=== PATIENT | female | born 1960 | race Caucasian/White ===

== ENCOUNTER 2019-11-09 02:25 | Emergency (ER) | payer OTHER, SELFPAY ==
--- NOTE | ~2019-11-09 | CT_ITS ---
EXAMINATION: CT brain wo con DATE: 11/09/2019 03:11 INDICATION: Stroke. Fall. Visual field defect for 3-4 days. TECHNIQUE: Computed tomography (CT) of the head was performed without intravenous contrast. The mA wa s adjusted according to patient size. Iterative reconstruction technique was employed. The dose-lengt h product was 605.33 mGy-cm. COMPARISON: Head CT 02/28/2019 FINDINGS: There is an old infarct in the right basal ganglia. Low-attenuation in the right cerebral p eduncle and jesus may be chronic Wallerian degeneration. There is a low-attenuation infarct in the lef t occipital lobe. There are scattered areas of low attenuation in the cerebral white matter. There is no intracranial hemorrhage, acute infarction, or abnormal intracranial mass lesion. The ventricles a re normal in size. Cavum septum pellucidum is noted. The paranasal sinuses are clear. The orbits are normal. There is a trace left mastoid effusion, which is chronic. IMPRESSION: 1. Left occipital lobe infarct, new from 02/28/2019, likely acute or subacute. 2. Old infarct in the right basal ganglia with likely chronic Wallerian degeneration involving the ri ght cerebral peduncle and jesus. 3. Stable mild nonspecific cerebral white matter disease, which likely represents chronic small vesse l ischemic disease. Reviewed, dictated and finalized at location A. IMPRESSION: 1. Left occipital lobe infarct, new from 02/28/2019, likely acute or subacute. 2. Old infarct in the right basal ganglia with likely chronic Wallerian degener ation involving the right cerebral peduncle and jesus. 3. Stable mild nonspecific cerebral white matter disease, which likely represen ts chronic small vessel ischemic disease.
--- NOTE | ~2019-11-09 | CT_ITS ---
EXAMINATION: CT abd pelvis lumbar wo con DATE: 11/09/2019 03:11 INDICATION: Right flank pain and low back pain. Fall. TECHNIQUE: Computed tomography (CT) of the abdomen and pelvis and lumbar spine was performed without intravenous contrast. Automated exposure control and iterative reconstruction technique were employed . The dose-length product was 1426.92 mGy-cm. COMPARISON: None FINDINGS: CT ABDOMEN AND PELVIS: The visualized portions of the lung bases are clear without pneumonia or pleur al effusion. The heart size is normal. There are coronary artery calcifications. No pericardial effus ion. There is a small sliding hiatal hernia. A calcification in the liver is consistent with old gran ulomatous disease. There are changes of cholecystectomy. The spleen, pancreas, and right adrenal glan d are normal. There is a 1.4 cm mass in left adrenal gland measuring low-attenuation, consistent with an adenoma. There is cortical thinning of the kidneys. There is no urolithiasis. There is a small ca lcified fibroids in the uterus. There are no dilated loops of bowel. The appendix is normal. There ar e no pathologically enlarged lymph nodes. There is no free intraperitoneal fluid. There is calcified atherosclerosis of the aorta and many of the other arteries. The bladder is not well distended. There is a subcutaneous hematoma in the right flank. CT LUMBAR SPINE: There is 3 mm anterolisthesis of L2 on L3. There is 12 degrees levoscoliosis of lumb ar spine. No acute fracture. There is severely decreased disc height at T11-T12, moderately decreased disc height at T12-L1, mildly decreased disc height at L1-L2, moderately decreased disc height at L2 -L3, and severely decreased disc height from L3-L4 through L5-S1. The following disc levels are speci fically discussed: L1-L2: The disc is bulging. There is moderate right and mild left facet joint osteoarthritis. There i s mild right neural foraminal stenosis. There is mild central canal stenosis. L2-L3: The disc is bulging. There is severe bilateral facet joint osteoarthritis. There is mild bilat eral neural foraminal stenosis. There is mild central canal stenosis. L3-L4: The disc is bulging. There is severe bilateral facet joint osteoarthritis. There is mild bilat eral neural foraminal stenosis. There is mild central canal stenosis. L4-L5: The disc is bulging. There is moderate bilateral facet joint osteoarthritis. There is mild rig ht and moderate left neural foraminal stenosis. There is mild central canal stenosis. L5-S1: The disc is bulging. There is severe bilateral facet joint osteoarthritis. There is moderate r ight and severe left neural foraminal stenosis. There is mild central canal stenosis. IMPRESSION: 1. Subcutaneous hematoma in the right flank. 2. Small sliding hiatal hernia. 3. Severe lumbar spondylosis. 4. Lumbar levoscoliosis. Reviewed, dictated and finalized at location A.
[2019-11-09 02:25] VITALS: BP 131/61; PULSE 77; RESP 16; TEMP 36.6; O2SAT 97
--- NOTE | 2019-11-09 04:14 | ED.FALL ---
HPI - Fall General Chief Complaint: Fall Stated Complaint: back , buttock pain Time Seen by Provider: 11/09/19 02:26 Source: RN notes reviewed History of Present Illness HPI Narrative: Patient presents emergency department from home via EMS for a fall. Patient states that she was trying to sit on the side of her bed when she missed the bed and fell striking her back on you the bed frame or her side dresser. Patient notes swelling and ecchymosis over the right flank as well as the right buttocks and low back pain. States she has not been up walking since the fall patient is on Plavix currently and does not believe she hit her head. She denies any chest pain shortness of breath or any other symptoms. Patient also notes in passing it over the past 3 to 4 days she has not been able to see anything out of her right visual field. States she is had no work-up for this previously. She denies any numbness or tingling in the extremities or any other symptoms Related Data Home Medications Medication Instructions Recorded Confirmed clopidogrel 75 mg PO DAILY 02/28/19 diclofenac sodium [Voltaren-XR] 75 mg PO BID 02/28/19 Allergies Allergy/AdvReac Type Severity Reaction Status Date / Time banana Allergy Severe HIVES Verified 05/03/19 10:30 SWELLING DENIES LATEX ALLG naproxen Allergy Severe anaphalyxsi Verified 05/03/19 10:30 s Review of Systems Review of Systems: Narrative: Gen.: Denies fevers or chills Eyes: See HPI ENT: Denies congestion Respiratory: Denies shortness of breath or cough CV: Denies chest pain or palpitations GI: Denies abdominal pain nausea, emesis or diarrhea Musculoskeletal: See HPI Neuro: Denies numbness, tingling, weakness or focal weakness Skin: Denies rash Except as documented, all other systems reviewed and negative PMF Past Medical History Medical History Carpal tunnel syndrome Chronic back pain COPD (chronic obstructive pulmonary disease) CVA (cerebral vascular accident) X2 Depression Gallbladder disease GERD (gastroesophageal reflux disease) History of recurrent UTIs HTN (hypertension) Poorly controlled per patient Migraines Multiple sclerosis Pneumonia Postmenopausal Thyroiditis TIA (transient ischemic attack) Ulcer Viral meningitis Social History Social History Smoking status: Former smoker Smoking end date: 03/22/17 Alcohol intake: never Exam Narrative: Exam Narrative: APPEARANCE: No acute distress, nontoxic, resting in bed EYES: EOMI, Amilcar, no swelling of the upper or lower eyelids, no conjunctival erythema, loss of right lateral visual field in her right eye no papilledema HEENT: Normocephalic, atraumatic, OMM RESPIRATORY: No respiratory distress Clear to auscultation bilaterally with no rhonchi wheezing or rales. CARDIOVASCULAR: Regular rate and rhythm without murmurs rubs or gallops. ABDOMINAL: Soft, nontender, nondistended, no rebound or guarding MUSCULOSKELETAl: Moves all extremities. No clubbing, cyanosis or edema. Back: No midline lumbar thoracic tenderness palpation, tender palpation of the right paravertebral muscles L1-4, right flank with area of swelling and ecchymosis right lower buttocks with area of swelling and ecchymosis NEURO: Awake and alert x 3. Following commands, speech normal, no focal deficits SKIN:: Warm, dry. No rashes lesions or abrasions PSYCHIATRIC: Normal affect/mood, Course Course Emergency Course: Able to get up and ambulate in ED with no difficulty. I did discuss with the patient her visual field loss. This is been going on for the past 3 to 4 days. At this time I discussed with patient need to follow-up with ophthalmology for further evaluation Discussed with patient results of workup and diagnosis. Discussed need for follow-up with primary care, proper use of medication, and reasons to return to the emergen
[2019-11-09 04:34] VITALS: BP 134/79; PULSE 74; RESP 16; TEMP 36.7; O2SAT 95
== END 2019-11-09 04:35 | disposition home or self-care (01) ==
PROVIDERS: Emergency Provider Emergency Medicine; PCP Family Medicine
DX: S30.0XXA Contusion of lower back and pelvis, initial encounter (principal); H54.7 Unspecified visual loss; Z79.02 Long term (current) use of antithrombotics/antiplatelets; J44.9 Chronic obstructive pulmonary disease, unspecified; Z86.73 Personal history of transient ischemic attack (TIA), and cerebral infarction without residual deficits; K21.9 Gastro-esophageal reflux disease without esophagitis; I10 Essential (primary) hypertension; G35 Multiple sclerosis; E06.9 Thyroiditis, unspecified; Z87.891 Personal history of nicotine dependence; W06.XXXA Fall from bed, initial encounter
CPT/HCPCS: 70450; 72133; 74176; 99284

== ENCOUNTER 2019-11-21 12:05 | Outpatient (CLI) | payer OTHER, SELFPAY ==
[2019-11-21 13:04] LABS: Cholesterol 157 mg/dL (0-200); HDL Direct 41 mg/dL; Triglycerides 274 mg/dL (<150)
[2019-11-21 13:05] LABS: Alanine Aminotransferase 14 U/L (4-35); Albumin Level 4.4 g/dL (3.5-5.1); Alkaline Phosphatase 126 U/L (38-126); Anion Gap 11 mmol/L (8-16); Aspartate Amino Transferase 23 U/L (14-36); Bilirubin,Total 0.8 mg/dL (0.2-1.3); Blood Urea Nitrogen 30 mg/dL (7-17); Calcium 8.5 mg/dL (8.4-10.2); Carbon Dioxide 24 mmol/L (22-30); Chloride 103 mmol/L (98-107); Estimated Glomerular Filt Rate 33; Glucose 158 mg/dL (65-105); Potassium 4.1 mmol/L (3.4-5.0); Sodium 138 mmol/L (137-145)
[2019-11-21 13:15] LABS: LDL Cholesterol Direct 67 mg/dL
[2019-11-21 13:27] LABS: Hemoglobin A1C 6.4 % (<5.7)
== END 2019-11-21 12:06 | disposition home or self-care (01) ==
PROVIDERS: PCP Family Medicine; Referring Provider Internal Medicine Cardiovascular Disease; Visit Provider Family Medicine
DX: E11.69 Type 2 diabetes mellitus with other specified complication (principal); E78.5 Hyperlipidemia, unspecified
CPT/HCPCS: 36415; 80053; 80061; 83036

== ENCOUNTER 2020-02-29 04:25 | Observation (INO) | payer MEDICARE, MEDICAID, SELFPAY ==
[2020-02-29] VITALS (41 sets, daily range): BP systolic 62–141; BP diastolic 32–99; PULSE 57–116; RESP 16–32; TEMP 36–36.9; O2SAT 91–100; BMI 36.8
--- NOTE | ~2020-02-29 | CT_ITS ---
EXAMINATION: CT cervical spine wo con DATE: 02/29/2020 05:42 INDICATION: Head injury. TECHNIQUE: Computed tomography (CT) of the cervical spine was performed without intravenous contrast. Automated exposure control and iterative reconstruction technique were employed. The dose-length pro duct was 463.98 mGy-cm. COMPARISON: None FINDINGS: There is 3 degrees levocurvature of cervicothoracic spine. Vertebral body heights are raiza l. There is mildly decreased disc height at C4-C5 and moderately decreased disc height at C5-C6. Ther e is a 3 mm nodule in right lung apex, likely benign. The following disc levels are specifically disc ussed: C2-C3: There is mild bilateral uncovertebral joint osteoarthritis. There is mild bilateral facet join t osteoarthritis. There is no neural foraminal stenosis. There is no central canal stenosis. C3-C4: There is no uncovertebral joint osteoarthritis. There is severe left facet joint osteoarthriti s. There is mild left neural foraminal stenosis. There is no central canal stenosis. C4-C5: There is moderate right and mild left uncovertebral joint osteoarthritis. There is severe righ t and mild left facet joint osteoarthritis. There is mild right neural foraminal stenosis. There is m ild central canal stenosis. C5-C6: There is mild bilateral uncovertebral joint osteoarthritis. There is severe right and moderate left facet joint osteoarthritis. There is mild bilateral neural foraminal stenosis. There is mild ce ntral canal stenosis. C6-C7: There is mild bilateral uncovertebral joint osteoarthritis. There is mild bilateral facet join t osteoarthritis. There is no neural foraminal stenosis. There is no central canal stenosis. C7-T1: There is no uncovertebral joint osteoarthritis. There is mild bilateral facet joint osteoarthr itis. There is no neural foraminal stenosis. There is no central canal stenosis. IMPRESSION: 1. No fracture. 2. Moderate cervical spondylosis. Reviewed, dictated and finalized at location B. N SKIN LIFTER
--- NOTE | ~2020-02-29 | XR_ITS ---
EXAMINATION: XR wrist LT min 3V DATE: 02/29/2020 05:56 INDICATION: Left wrist pain post fall TECHNIQUE: Posteroanterior, ulnar deviation, oblique, and lateral views of the left wrist were obtain ed. COMPARISON: none FINDINGS: Alignment is normal. No fracture. Mild to moderate osteoarthritis at the third metacarpophalangeal sophia int and mild osteoarthritis at the radiocarpal, and first and second metacarpophalangeal joints. Katherin pheral IV at the distal forearm. Soft tissues are unremarkable. IMPRESSION: 1. Generally mild polyarticular osteoarthritis. Reviewed, dictated and finalized at location A. O VIDEO MECHANIC
--- NOTE | ~2020-02-29 | CT_ITS ---
EXAMINATION: CT brain wo con DATE: 02/29/2020 05:42 INDICATION: Head injury. TECHNIQUE: Computed tomography (CT) of the head was performed without intravenous contrast. The mA wa s adjusted according to patient size. Iterative reconstruction technique was employed. The dose-lengt h product was 681.00 mGy-cm. COMPARISON: Head CT 11/09/2019 FINDINGS: There are old infarcts in the right basal ganglia and left occipital lobe. There are scatte red areas of low attenuation in the cerebral white matter. There is no intracranial hemorrhage, acute infarction, or abnormal intracranial mass lesion. The ventricles are normal in size. Cavum septum ca llosum is noted. The orbits are normal. There is mild mucosal thickening in the paranasal sinuses. Th ere is a left frontal scalp hematoma. The mastoid air cells are normal. IMPRESSION: 1. Old infarcts in the right basal ganglia and left occipital lobe. 2. Stable mild nonspecific cerebral white matter disease, which likely represents chronic small vesse l ischemic disease. Reviewed, dictated and finalized at location B. FACTURING ENGINEERING INTERN IMPRESSION: 1. Old infarcts in the right basal ganglia and left occipital lobe. 2. Stable mild nonspecific cerebral white matter disease, which likely represen ts chronic small vessel ischemic disease.
--- NOTE | ~2020-02-29 | XR_ITS ---
EXAMINATION: XR knee LT min 4V DATE: 02/29/2020 05:56 INDICATION: Left knee pain post fall TECHNIQUE: Anteroposterior, 2 oblique and crosstable lateral views of the left knee were obtained COMPARISON: 02/28/2019 and 06/24/2017 FINDINGS: Chronic nonunited fracture of the patella which is subluxed laterally to the point of near dislocatio n. There is secondary advanced osteoarthritis at the lateral side of the patellofemoral compartment w ith remodeling of the lateral trochlea. No acute fracture. At least mild osteoarthritis in the medial and lateral compartments although severity of joint space narrowing can be underestimated on nonweig htbearing imaging. Chronic small enchondroma at the proximal head of the fibula. Small likely reactiv e left knee joint effusion without layering lipohemarthrosis. IMPRESSION: 1. No acute osseous abnormality. 2. Advanced osteoarthritis at the patellofemoral compartment with chronic nonunited patellar fracture . Reviewed, dictated and finalized at location A. TY THERAPIST IMPRESSION: 1. No acute osseous abnormality. 2. Advanced osteoarthritis at the patellofemoral compartment with chronic nonun ited patellar fracture.
--- NOTE | ~2020-02-29 | MR_ITS ---
EXAMINATION: MR brain/brain stem wo con DATE: 02/29/2020 16:11 INDICATION: Dizziness. TECHNIQUE: Magnetic resonance imaging (MRI) of the brain and brainstem was performed without intraven ous contrast. Sequences included sagittal and axial T1-weighted FSE, axial diffusion-weighted FS EPI, axial T2*-weighted GRE, axial T2-weighted FLAIR Propeller, and axial T2-weighted Propeller. Apparent diffusion coefficient (ADC) maps were created. COMPARISON: Brain MRI 10/27/2003, head CT 02/29/2020 FINDINGS: There are old infarcts in the left occipital lobe and right basal ganglia. There are scatte red areas of nonspecific increased T2-weighted signal intensity in the cerebral white matter and jesus . There is no intracranial hemorrhage, acute infarction, or abnormal intracranial mass lesion. The ve ntricles are normal in size. Cavum septum pellucidum is noted. There is a left frontal scalp hematoma . There is mild mucosal thickening in the paranasal sinuses. The orbits are normal. The mastoid air c ells are normal. IMPRESSION: 1. Old infarcts in the right basal ganglia and left occipital lobe. 2. Mild nonspecific cerebral white matter disease and pontine disease, which likely represents chroni c small vessel ischemic disease. Reviewed, dictated and finalized at location B. RY CRANE OPERATOR IMPRESSION: 1. Old infarcts in the right basal ganglia and left occipital lobe. 2. Mild nonspecific cerebral white matter disease and pontine disease, which sid duarte represents chronic small vessel ischemic disease.
--- NOTE | 2020-02-29 05:14 | ECG_ITS ---
Measurements Intervals [place] Rate: 72 P: 51 DE: 156 QRS: -56 QRSD: 108 T: 59 QT: 421 QTc: 461 Interpretive Statements SINUS RHYTHM FREQUENT VENTRICULAR PREMATURE COMPLEXES LOW QRS VOLTAGE IN PRECORDIAL LEADS LEFT ANTERIOR FASCICULAR BLOCK CANNOT RULE OUT SEPTAL INFARCT, AGE INDETERMINATE BASELINE ARTIFACT- I, II, III, AVR, AVL, AVF, V2 ABNORMAL ECG Electronically Signed On 02-29-2020 7:18:28 PRECISION ASSEMBLY INSPECTOR by Jl Skelton D.O.
[2020-02-29 06:12] LABS: Basophils Absolute Auto 0.1 K/mm3 (0.0-0.1); Basophils Percent Auto 0.4 % (0.2-1.2); Eosinophils Absolute Auto 0.5 K/mm3 (0-0.3); Eosinophils Percent Auto 3.4 % (0-4.4); Hematocrit 41.2 % (37.0-47.0); Hemoglobin 13.8 g/dL (12.0-15.0); Immature Granulocyte Absolute 0.08 K/mm3 (0.00-0.031); Immature Granulocyte Percent A 0.6 % (0-0.5); Lymphocytes Absolute Auto 1.95 K/mm3 (0.9-3.2); Mean Corpuscular HGB Conc 33.5 g/dl (32-36); Mean Corpuscular Hemoglobin 29.6 pg (26-34); Mean Corpuscular Volume 88.4 fl (80-100); Mean Platelet Volume 10.7 fl (7.4-10.4); Monocytes Absolute Auto 0.8 K/mm3 (0.1-0.6); Neutrophils Absolute Auto 10.5 K/mm3 (1.3-6.7); Neutrophils Percent Auto 75.6 % (45.5-73.1); Platelet Count Result 234 k/mm3 (150-375); Red Blood Count 4.66 M/mm3 (4.2-5.4); Red Cell Distribution Width 12.6 % (11.5-14.5); White Blood Count 13.9 K/mm3 (4.5-10.0)
--- NOTE | 2020-02-29 06:14 | ED.FALL ---
HPI - Fall General Chief Complaint: Fall <Keya Rodriguez MD - Last Filed: 02/29/20 09:42> Stated Complaint: ground level fall <Keya Rodriguez MD - Last Filed: 02/29/20 09:42> Time Seen by Provider: 02/29/20 04:29 <Keya Rodriguez MD - Last Filed: 02/29/20 09:42> Source: patient <Keya Rodriguez MD - Last Filed: 02/29/20 09:42> Mode of arrival: EMS <Keya Rodriguez MD - Last Filed: 02/29/20 09:42> Limitations: no limitations <Keya Rodriguez MD - Last Filed: 02/29/20 09:42> History of Present Illness HPI Narrative: This patient is a 59 year old female with history of multiple CVA, hypertension, hyperlipidemia who presents for an evaluation of head injury s/p fall. She states she stood up to go to the restroom and she became dizzy. She reports she was unable to make it to the restroom and she had incontinence. She slipped and she hit her head but denies LOC. She has a large forehead hematoma but she denies nausea, dizziness, chest pain. She reports left wrist pain and chronic left knee pain. She take plavix due to her history of multiple strokes. She reports residual facial droop from her strokes. <Keya Rodriguez MD - Last Filed: 02/29/20 09:42> Related Data Home Medications: Home Medications Medication Instructions Recorded Confirmed diclofenac sodium [Voltaren-XR] 75 mg PO BID 02/28/19 11/13/19 <Keya Rodriguez MD - Last Filed: 02/29/20 09:42> Allergies/Adverse Reactions: Allergies Allergy/AdvReac Type Severity Reaction Status Date / Time banana Allergy Severe HIVES Verified 11/13/19 15:08 SWELLING DENIES LATEX ALLG naproxen Allergy Severe anaphalyxsi Verified 11/13/19 15:08 s <Keya Rodriguez MD - Last Filed: 02/29/20 09:42> Review of Systems Review of Systems: All systems reviewed & are unremarkable except as noted in HPI and below <Keya Rodriguez MD - Last Filed: 02/29/20 09:42> Constitutional: Constitutional: Denies chills and Denies fever(s) <Keya Rodriguez MD - Last Filed: 02/29/20 09:42> Eyes: Eyes: Denies change in vision <Keya Rodriguez MD - Last Filed: 02/29/20 09:42> ENT: Reports dizziness <Keya Rodriguez MD - Last Filed: 02/29/20 09:42> Cardiovascular: Cardiovascular: Denies chest pain <Keya Rodriguez MD - Last Filed: 02/29/20 09:42> Respiratory: Respiratory: Denies cough and Denies dyspnea <Keya Rodriguez MD - Last Filed: 02/29/20 09:42> Gastrointestinal: Gastrointestinal: Denies abdominal pain, Denies nausea and Denies vomiting <Keya Rodriguez MD - Last Filed: 02/29/20 09:42> Musculoskeletal: Musculoskeletal: Reports arthralgias <Keya Rodriguez MD - Last Filed: 02/29/20 09:42> [facility] Past Medical History Medical History: Medical History (Updated 02/29/20 @ 09:53 by Naif Arthur MD) Carpal tunnel syndrome Chronic back pain COPD (chronic obstructive pulmonary disease) CVA (cerebral vascular accident) X2 Depression Gallbladder disease GERD (gastroesophageal reflux disease) History of recurrent UTIs HTN (hypertension) Poorly controlled per patient Migraines Multiple sclerosis Pneumonia Postmenopausal Thyroiditis TIA (transient ischemic attack) Ulcer Viral meningitis <Keya Rodriguez MD - Last Filed: 02/29/20 09:42> Surgical History Surgical History: Surgical History H/O dilation and curettage H/O: History of carpal tunnel release of both wrists Hx of cholecystectomy S/P right rotator cuff repair <Keya oRdriguez MD - Last Filed: 02/29/20 09:42> Family History Family History: Family History Grandparent Diabetes mellitus Sibling Diabetes mellitus Hypertension Father Hypertension Acute myocardial infarction Family history of malignant neoplasm of stomach Mother Hypertensi
[2020-02-29 06:23] LABS: INR 0.9
[2020-02-29 06:24] LABS: Partial Thromboplastin Time 21.4 SECONDS (22.3-36.8)
[2020-02-29 06:26] LABS: Alanine Aminotransferase 12 U/L (4-35); Albumin Level 4.3 g/dL (3.5-5.1); Alkaline Phosphatase 127 U/L (38-126); Anion Gap 13 mmol/L (8-16); Aspartate Amino Transferase 17 U/L (14-36); Bilirubin,Total 0.4 mg/dL (0.2-1.3); Blood Urea Nitrogen 55 mg/dL (7-17); Carbon Dioxide 22 mmol/L (22-30); Chloride 102 mmol/L (98-107); Estimated CRCL calculation 35 ml/min; Estimated Glomerular Filt Rate 24; Glucose 175 mg/dL (65-105); Potassium 3.4 mmol/L (3.4-5.0); Sodium 137 mmol/L (137-145)
[2020-02-29] MEDS: SODIUM CHLORIDE 0.9% IV 1,000 ML 999 ML IV CONT (06:40)
[2020-02-29] MEDS: ACETAMINOPHEN 325 MG TABLET 650 MG PO (09:10)
--- NOTE | 2020-02-29 12:09 | ADMGEN ---
This patient, Natalie Singh, was admitted to 2 Medical Room 259-01. Patient/family oriented to hospital policies and general routines including ID bracelet, bed and alarms, visiting hours, pain management, procedures, bathroom and other care routines, personal items, smoking policy, room service/diet, and visiting hours. Information on how to activate the Rapid Response Team has been discussed. Patient/Family are encouraged to report perceived risks to care and to ask questions if they do not understand what they are told or what they should do.
--- NOTE | 2020-02-29 14:15 | PM.IMHP ---
H&P: HPI History of Present Illness Date/Time: 02/29/20 14:15 Chief complaint: Fall. Narrative: Natalie Singh is a 5-year-old female smoker with history of stroke, hypertension, diet-controlled diabetes, and chronic kidney disease who presented to the emergency department earlier this morning via EMS from home for evaluation after a ground level fall. She felt very lightheaded when she stood up from bed this morning and lost her balance, causing her to fall forward, striking the left side of her face on the bedside table. Unfortunately she was not able to get herself up as she was having pain in her left wrist as well but she was able to scoot to the phone to call her son for help. He was not able to get her up either, and EMS was summoned. She had negative imaging in the emergency department but for some reason there was concerns that she perhaps had another stroke although she gives no history to suggest such, and she is being admitted in this setting. Her BUN and creatinine are also a bit elevated from baseline and with further questioning she tells me that she has been eating and drinking as per usual and she has not had any recent change in medications. She has been incontinent of urine for many years and it is difficult for her to say whether not she has had a decrease in urine output ORIF she has had issues with bladder retention. The only complaint she has at the time my evaluation is some discomfort about the left eye which is swollen and bruised from the fall. She denies loss of consciousness in the fall. She also denies vertigo, auditory and visual changes (aside from her significantly swollen left eye due to the fall earlier today), and any changes in her chronic left-sided weakness and facial droop from previous stroke. No dysuria or hematuria. No nausea, vomiting, or diarrhea. Review of Systems Review of Systems: Narrative: Twelve systems were reviewed with pertinent positives and negatives as per HPI. She denies recent cold and flu symptoms. No exposure to those positive for COVID-19. She has a chronic smoker's cough and shortness of breath with frequent wheezing secondary to COPD from ongoing tobacco abuse. She does not use inhalers or nebulizers at home and is not really interested in trying them either. No chest pain or palpitations. She denies nausea, vomiting, and diarrhea. She is not on any medication for her diabetes and does not check her glucose at home. No blurry vision, polydipsia, or polyuria. Except as documented, all other systems were reviewed and are negative. [facility] Past Medical History Medical History (Updated 02/29/20 @ 23:14 by Jessica Ponce PA-C) Johnson's esophagus Cerebrovascular accident X3; June 2017, August 2017, October 2019. Chronic back pain Chronic kidney disease, stage 3 Baseline creatinine is between 1.3 and 1.60. Chronic obstructive pulmonary disease Depression Gastroesophageal reflux disease History of fracture Right ankle fracture. Left patellar fracture History of peptic ulcer History of recurrent UTIs History of thyroiditis Hypertension Macular degeneration Migraines Osteoarthritis Type 2 diabetes mellitus Diet-controlled. Hemoglobin A1c was 6.4% in November 2019. Surgical History Surgical History (Updated 02/29/20 @ 14:15 by Jessica Ponce PA-C) History of bilateral carpal tunnel release History of section History of dilation and curettage History of foot surgery Bilateral foot surgery in the 1980s to correct deformities attributed to [id number]. History of laparoscopic cholecystectomy History of loop recorder History of lumbar laminectomy History of repair of right rotator cuff History of tonsillectomy Family History Family History Grandparent Diabetes mellitus Sibling Diabetes mellitus Hypertension Father Hypertension Acute myocardial infarction Family history of mal
--- NOTE | 2020-02-29 14:32 | PCOTNOTE ---
OT evaluation attempted. Patient down for testing. Will attempt at later time.
--- NOTE | 2020-02-29 14:39 | PCPTNOTE ---
Pt going for MRI. Will try again tomorrow.
[2020-02-29] MEDS: SODIUM CHLORIDE 0.9% IV 1,000 ML 100 ML IV CONT (16:25)
[2020-02-29] MEDS: PANTOPRAZOLE 40 MG TABLET PO (16:27)
[2020-02-29] MEDS: cilostazoL 100 MG TABLET PO (16:28)
[2020-02-29 17:23] LABS: Glucose Point of Care 107 (65-105)
[2020-02-29] MEDS: atenoloL 25 MG TABLET PO (20:26)
[2020-02-29] MEDS: rOPINIRole HCL 1 MG TABLET PO (20:26)
[2020-02-29] MEDS: SERTRALINE HCL 50 MG TABLET 100 MG PO (20:26)
[2020-02-29] MEDS: ATORVASTATIN 40 MG TABLET 80 MG PO (20:26)
[2020-02-29] MEDS: AMITRIPTYLINE HCL 10 MG TABLET PO (20:26)
[2020-02-29] MEDS: ACETAMINOPHEN 500 MG TABLET PO (20:32)
[2020-02-29 20:50] LABS: Glucose Point of Care 164 (65-105)
[2020-03-01] VITALS (11 sets, daily range): BP systolic 107–147; BP diastolic 50–90; PULSE 63–87; RESP 16–20; TEMP 36.1–36.5; O2SAT 95–99
[2020-03-01] MEDS: SODIUM CHLORIDE 0.9% IV 1,000 ML 100 ML IV CONT ×2 (02:27→13:06)
[2020-03-01] MEDS: ACETAMINOPHEN 500 MG TABLET PO ×2 (02:29→06:50)
--- NOTE | 2020-03-01 04:31 | PC.NURSE ---
02/29/20 @ 2049 informed Hiliary Rosario JARAMILLO of patient in trigeminy. no new orders
[2020-03-01 06:02] LABS: Anion Gap 9 mmol/L (8-16); Blood Urea Nitrogen 45 mg/dL (7-17); Calcium 7.6 mg/dL (8.4-10.2); Carbon Dioxide 18 mmol/L (22-30); Chloride 106 mmol/L (98-107); Creatine Kinase 197 U/L (30-135); Estimated CRCL calculation 43 ml/min; Estimated Glomerular Filt Rate 31; Glucose 129 mg/dL (65-105); Magnesium 1.1 mg/dL (1.6-2.3); Sodium 133 mmol/L (137-145)
[2020-03-01 06:45] LABS: Thyroid Stimulating Hormone Reflex 0.998 uIU/mL (0.465-4.68)
[2020-03-01 08:00] LABS: Glucose Point of Care 131 (65-105)
[2020-03-01] MEDS: POTASSIUM CHLORIDE 20 MEQ TABLET 40 MEQ PO (09:59)
[2020-03-01] MEDS: atenoloL 25 MG TABLET PO (09:59)
[2020-03-01] MEDS: MAGNESIUM SULF 4 GM/WATER100ML 4 GM/100 ML BAG IVPB (09:59)
[2020-03-01] MEDS: PANTOPRAZOLE 40 MG TABLET PO (10:00)
[2020-03-01 11:54] LABS: Glucose Point of Care 185 (65-105)
[2020-03-01 13:42] LABS: Magnesium 2.5 mg/dL (1.6-2.3); Potassium 3.5 mmol/L (3.4-5.0)
--- NOTE | 2020-03-01 13:44 | PM.DS ---
DS: Admitting Diagnosis Admitting Diagnosis Admitting Diagnosis: Fall. DS: Discharge Diagnosis Discharge Diagnosis (1) Acute kidney injury superimposed on chronic kidney disease: Code(s): N17.9 - Acute kidney failure, unspecified; N18.9 - Chronic kidney disease, unspecified Status: Acute (2) Closed head injury: Qualifiers: Encounter type: subsequent encounter Qualified Code(s): S09.90XD - Unspecified injury of head, subsequent encounter Code(s): S09.90XA - Unspecified injury of head, initial encounter Status: Acute (3) Fall from ground level: Code(s): W18.30XA - Fall on same level, unspecified, initial encounter Status: Acute (4) Essential (primary) hypertension: Code(s): I10 - Essential (primary) hypertension Status: Acute (5) Hypokalemia: Code(s): E87.6 - Hypokalemia Status: Acute (6) Hypomagnesemia: Code(s): E83.42 - Hypomagnesemia Status: Acute DS: Summary Hospital Course Reason for hospitalization: Natalie Singh is a 5-year-old female smoker with history of stroke, hypertension, diet-controlled diabetes, and chronic kidney disease who presented to the emergency department earlier this morning via EMS from home for evaluation after a ground level fall. She felt very lightheaded when she stood up from bed this morning and lost her balance, causing her to fall forward, striking the left side of her face on the bedside table. Unfortunately she was not able to get herself up as she was having pain in her left wrist as well but she was able to scoot to the phone to call her son for help. He was not able to get her up either, and EMS was summoned. She had negative imaging in the emergency department but for some reason there was concerns that she perhaps had another stroke although she gives no history to suggest such, and she is being admitted in this setting. Her BUN and creatinine are also a bit elevated from baseline and with further questioning she tells me that she has been eating and drinking as per usual and she has not had any recent change in medications. She has been incontinent of urine for many years and it is difficult for her to say whether not she has had a decrease in urine output ORIF she has had issues with bladder retention. The only complaint she has at the time my evaluation is some discomfort about the left eye which is swollen and bruised from the fall. She denies loss of consciousness in the fall. She also denies vertigo, auditory and visual changes (aside from her significantly swollen left eye due to the fall earlier today), and any changes in her chronic left-sided weakness and facial droop from previous stroke. No dysuria or hematuria. No nausea, vomiting, or diarrhea. Hospital Course: The patient had orthostatic blood pressure and pulse obtained at the time of his admission. The patient did not have any orthostatic changes in her blood pressure but did have greater than 20% change in pulse rate with changing from sitting to standing position. The patient had evidence hypovolemia with elevated BUN creatinine from baseline. Her BUN and creatinine improved after IV fluid hydration. She still had some orthostatic changes in her pulse rate but they had improved slightly from admission. Caution when attempting position changes was discussed with the patient. She verbalized understanding. She agrees to increase her oral intake and in fact had drank too large containers of water as well as a soda and juice prior to my evaluation. She has had good urine output. Patient does have a large hematoma to her left eye but denies any headache or vision changes. The patient initially had some soft blood pressures at the time of admission but was back to normotensive and state in fact at times mildly hypertensive prior to discharge. Her repeat labs this morning demonstrated significant hypokalemia and hypomagnesemia. She subsequently rec
== END 2020-03-01 15:55 | disposition home or self-care (01) ==
LOC: ANHED 09:48 → ANH2MED 14:20
PROVIDERS: General Practice; Physician Assistant; Admitting Provider Family Medicine; Emergency Provider Emergency Medicine; PCP Family Medicine; Visit Provider Internal Medicine
DX: S09.90XA Unspecified injury of head, initial encounter (principal); W19.XXXA Unspecified fall, initial encounter; N17.9 Acute kidney failure, unspecified; I12.9 Hypertensive chronic kidney disease with stage 1 through stage 4 chronic kidney disease, or unspecified chronic kidney disease; N18.30 Chronic kidney disease, stage 3 unspecified; I69.354 Hemiplegia and hemiparesis following cerebral infarction affecting left non-dominant side; E11.22 Type 2 diabetes mellitus with diabetic chronic kidney disease; F17.210 Nicotine dependence, cigarettes, uncomplicated; J44.9 Chronic obstructive pulmonary disease, unspecified; K21.9 Gastro-esophageal reflux disease without esophagitis; M17.12 Unilateral primary osteoarthritis, left knee; M47.812 Spondylosis without myelopathy or radiculopathy, cervical region; Z23 Encounter for immunization; Z79.4 Long term (current) use of insulin
CPT/HCPCS: 36415; 70450; 70551; 72125; 73110; 73564; 80048; 80053; 82550; 83735; 84132; 84443; 85025; 85610; 85730; 90471; 90653; 93005; 96361; 96365; 97161; 97165; 99285; A9270; G0008; G0378; J3475; J7030

== ENCOUNTER 2020-10-15 14:30 | Outpatient (CLI) | payer MEDICARE, MEDICAID, SELFPAY ==
[2020-10-15 15:34] LABS: Basophils Absolute Auto 0.1 K/mm3 (0.0-0.1); Basophils Percent Auto 0.7 % (0.2-1.2); Eosinophils Absolute Auto 0.5 K/mm3 (0-0.3); Eosinophils Percent Auto 4.1 % (0-4.4); Hematocrit 39.8 % (37.0-47.0); Hemoglobin 13.6 g/dL (12.0-15.0); Immature Granulocyte Absolute 0.04 K/mm3 (0.00-0.031); Immature Granulocyte Percent A 0.4 % (0-0.5); Lymphocytes Absolute Auto 3.24 K/mm3 (0.9-3.2); Lymphocytes Percent Auto 29.6 % (18.3-44.2); Mean Corpuscular HGB Conc 34.2 g/dl (32-36); Mean Corpuscular Hemoglobin 29.5 pg (26-34); Mean Corpuscular Volume 86.3 fl (80-100); Monocytes Absolute Auto 0.9 K/mm3 (0.1-0.6); Monocytes Percent Auto 8.2 % (2.6-8.5); Neutrophils Absolute Auto 6.2 K/mm3 (1.3-6.7); Platelet Count Result 250 k/mm3 (150-375); Red Blood Count 4.61 M/mm3 (4.2-5.4); White Blood Count 10.9 K/mm3 (4.5-10.0)
[2020-10-15 15:49] LABS: Hemoglobin A1C 8.5 % (<5.7)
[2020-10-15 15:58] LABS: Alanine Aminotransferase 17 U/L (4-35); Albumin Level 4.5 g/dL (3.5-5.1); Alkaline Phosphatase 141 U/L (38-126); Anion Gap 13 mmol/L (8-16); Aspartate Amino Transferase 23 U/L (14-36); Bilirubin,Total 0.6 mg/dL (0.2-1.3); Blood Urea Nitrogen 39 mg/dL (7-17); Calcium 9.3 mg/dL (8.4-10.2); Carbon Dioxide 21 mmol/L (22-30); Chloride 103 mmol/L (98-107); Estimated Glomerular Filt Rate 35; Glucose 130 mg/dL (65-110); Potassium 3.7 mmol/L (3.4-5.0); Sodium 137 mmol/L (137-145)
== END 2020-10-15 14:31 | disposition home or self-care (01) ==
PROVIDERS: PCP Family Medicine; Visit Provider Family Medicine
DX: E78.2 Mixed hyperlipidemia (principal); R60.9 Edema, unspecified; I10 Essential (primary) hypertension; E11.9 Type 2 diabetes mellitus without complications; E87.6 Hypokalemia; E83.42 Hypomagnesemia
CPT/HCPCS: 36415; 80053; 83036; 85025

== ENCOUNTER 2021-09-01 16:45 | Emergency (ER) | payer MEDICARE, MEDICAID, SELFPAY ==
--- NOTE | ~2021-09-01 | US_ITS ---
EXAMINATION: US venous doppler LE RT DATE: 09/01/2021 18:37 INDICATION: rule out DVT, right lower limb pain . TECHNIQUE: Grayscale images without and with compression and Doppler images of the right lower extrem ity veins were obtained. COMPARISON: None FINDINGS: The right common femoral vein, profunda (deep) femoral vein, femoral vein, popliteal vein, peroneal v ein, posterior tibial veins, gastrocnemius vein, lesser saphenous, and greater saphenous vein are pat ent. IMPRESSION: 1. Patent right lower extremity veins. No evidence of deep venous thrombosis Reviewed, dictated and finalized at location K.
--- NOTE | ~2021-09-01 | CT_ITS ---
EXAMINATION: CT abdomen pelvis wo con DATE: 09/01/2021 19:18 INDICATION: right lower back pain radiating to groin TECHNIQUE: Computed tomography (CT) of the abdomen and pelvis was performed without intravenous contr ast. Automated exposure control and iterative reconstruction technique were employed. The dose-length product was 1417.90 mGy-cm. COMPARISON: 11/09/2019. FINDINGS: Lower thorax: Coronary artery calcification. Stable left paraspinal soft tissue mass adjacent to T10. Liver: Normal. Biliary/Gallbladder: Gallbladder is absent. No bile duct dilation. Pancreas: No mass or duct dilation. Spleen: Normal. Adrenals:Left adrenal adenoma. Kidneys: Exophytic subcentimeter left renal hypodensities, too small to characterize but likely repre sent cysts. No hydronephrosis or nephrolithiasis. GI tract: No small or large bowel dilation. Normal appendix. Mesentery/Peritoneum: No ascites, mass, or free air. Retroperitoneum: No mass. Atherosclerotic calcifications. Pelvis: Distended bladder with wall thickening. 1.7 cm left ovarian cyst, stable to decreased in size . Soft Tissues: Small fat-containing umbilical hernia and bilateral inguinal hernias. Bones: No acute osseous finding. IMPRESSION: Bladder wall thickening as can be seen with cystitis in the appropriate clinical context. Otherwise n o acute abdominopelvic process. Reviewed, dictated and finalized at location K. IMPRESSION: Bladder wall thickening as can be seen with cystitis in the appropriate clinica l context. Otherwise no acute abdominopelvic process.
[2021-09-01 16:47] VITALS: BP 170/91; PULSE 82; RESP 16; TEMP 36.8; O2SAT 96
--- NOTE | 2021-09-01 18:12 | ED.GENADULT ---
HPI - General Adult General Chief complaint: Extremity Injury, Lower Stated complaint: RIGHT THIGH PAIN RADIATING TO HER GROIN & BACK Time Seen by Provider: 09/01/21 17:36 Source: patient, RN notes reviewed and old records reviewed Mode of arrival: ambulatory Limitations: no limitations History of Present Illness HPI narrative: This is a 61 year old female with multiple medical problems who presents for evaluation of right lower back pain and right thigh pain. She states 7 days ago she developed pain in her right lower back and her right thigh. This pain has been constant. She states she has been drinking plenty of fluid in case this was due to her kidney. She has been apply bengay to her right thigh due think it was muscular. Her pain is worse with movement and palpation. She states if she stands too long her leg falls asleep. She denies leg weakness. She has also been taking tylenol for her pain without relief. She denies associated hematuria, dysuria, nausea, vomiting or fever. Related Data Home Medications Medication Instructions Recorded Confirmed acetaminophen 500 mg tablet 500 mg PO Q6H PRN Pain 02/29/20 09/04/21 (Acetaminophen Extra Strength) pen needle, diabetic 31 gauge x 10/30/20 09/04/2108/04 (BD Ultra-Fine Short Pen Needle) Allergies Allergy/AdvReac Type Severity Reaction Status Date / Time banana Allergy Severe HIVES Verified 09/04/21 09:24 SWELLING DENIES LATEX ALLG naproxen Allergy Severe anaphalyxsi Verified 09/04/21 09:24 s Review of Systems Review of Systems: All systems reviewed & are unremarkable except as noted in HPI and below Constitutional: Constitutional: Denies fatigue and Denies fever(s) Cardiovascular: Cardiovascular: Denies chest pain and Denies rapid heart rate Gastrointestinal: Gastrointestinal: Denies diarrhea, Denies nausea and Denies vomiting Genitourinary: Genitourinary: Denies nocturia, Denies dysuria, Reports flank pain and Reports urinary incontinence Musculoskeletal: Musculoskeletal: Reports back pain Neurologic: Denies headache(s) and Denies focal weakness PMFSH Past Medical History Medical History Johnson's esophagus Cerebrovascular accident X3; June 2017, August 2017, October 2019. Chronic back pain Chronic kidney disease, stage 3 Baseline creatinine is between 1.3 and 1.60. Chronic obstructive pulmonary disease Depression Gastroesophageal reflux disease History of fracture Right ankle fracture. Left patellar fracture History of peptic ulcer History of recurrent UTIs History of thyroiditis Hypertension Macular degeneration Migraines Osteoarthritis Type 2 diabetes mellitus Diet-controlled. Hemoglobin A1c was 6.4% in November 2019. Unable to ambulate Surgical History Surgical History History of bilateral carpal tunnel release History of section History of dilation and curettage History of foot surgery Bilateral foot surgery in the to correct deformities attributed to [id number]. History of laparoscopic cholecystectomy History of loop recorder History of lumbar laminectomy History of repair of right rotator cuff History of tonsillectomy Family History Family History Grandparent Diabetes mellitus Sibling Diabetes mellitus Hypertension Father Hypertension Acute myocardial infarction Family history of malignant neoplasm of stomach Mother Hypertension Family history of chronic obstructive pulmonary disease Other Family history of cardiovascular disease Family history of lung disease Family history of osteoporosis Social History Social History Social History: Surrogate decision maker: Kath Chow and Angi Rankin, sisters. Code
[2021-09-01 18:26] LABS: Basophils Absolute Auto 0.1 K/mm3 (0.0-0.1); Basophils Percent Auto 0.7 % (0.2-1.2); Eosinophils Absolute Auto 0.4 K/mm3 (0-0.3); Eosinophils Percent Auto 3.4 % (0-4.4); Hematocrit 41.4 % (37.0-47.0); Hemoglobin 13.6 g/dL (12.0-15.0); Immature Granulocyte Percent A 0.8 % (0-0.5); Lymphocytes Percent Auto 21.4 % (18.3-44.2); Mean Corpuscular HGB Conc 32.9 g/dl (32-36); Mean Corpuscular Hemoglobin 29.4 pg (26-34); Mean Corpuscular Volume 89.6 fl (80-100); Mean Platelet Volume 10.2 fl (7.4-10.4); Monocytes Percent Auto 8.1 % (2.6-8.5); Neutrophils Percent Auto 65.6 % (45.5-73.1); Platelet Count Result 268 k/mm3 (150-375); Red Blood Count 4.62 M/mm3 (4.2-5.4); Red Cell Distribution Width 13.3 % (11.5-14.5); White Blood Count 12.2 K/mm3 (4.5-10.0)
[2021-09-01 18:37] LABS: Partial Thromboplastin Time 25.7 SECONDS (22.3-36.8); Prothrombin Time 13.1 Seconds (11.1-14.7)
[2021-09-01 18:44] LABS: Alanine Aminotransferase 18 U/L (6-35); Albumin Level 4.1 g/dL (3.5-5.1); Alkaline Phosphatase 130 U/L (38-126); Anion Gap 8 mmol/L (8-16); Aspartate Amino Transferase 20 U/L (14-36); Bilirubin,Total 0.4 mg/dL (0.2-1.3); Blood Urea Nitrogen 28 mg/dL (7-17); CRP 1.1 mg/dL (<1.0); Calcium 8.9 mg/dL (8.4-10.2); Carbon Dioxide 21 mmol/L (22-30); Chloride 108 mmol/L (98-107); Creatine Kinase 76 U/L (30-135); Estimated CRCL calculation 63 ml/min; Estimated Glomerular Filt Rate 50; Glucose 132 mg/dL (65-110); Potassium 3.8 mmol/L (3.4-5.0); Sodium 137 mmol/L (137-145)
--- NOTE | 2021-09-01 19:56 | PC.NURSE ---
patient taken by marco antonio perez to restroom to provide urine sample.. unable to provide urine at this time.
[2021-09-01 20:25] LABS: Appearance Urine Slightly Cloudy (Clear); Bilirubin Urine Negative (Negative); Blood Urine 2+ (Negative); Glucose Urine UA Negative (Negative); Ketones Urine Negative (Negative); Leukocyte Esterase Ur 2+ LEU/UL (Negative); Nitrate Urine Positive (Negative); Protein Urine 1+ mg/dL (Negative); Specific Grav Ur <= 1.005 (1.001-1.035); Urobilinogen Urine 0.2 mg/dL (<2.0); pH Urine 5.5 (5.0-9.0)
[2021-09-01 20:28] VITALS: BP 152/77; PULSE 67; RESP 20; O2SAT 95
[2021-09-01 20:29] LABS: Bacteria Urine 4+ /hpf; Mucus Urine Rare /lpf; RBC Urine 0-2 /hpf (0-2); WBC Clumps Urine Present /HPF; WBC Urine >75 /hpf
[2021-09-01 20:31] LABS: Add Urine Microscopic? YES; Color Urine Light Yellow (Yellow)
[2021-09-01 21:31] VITALS: BP 152/77; PULSE 75; RESP 20; O2SAT 97
[2021-09-01] MEDS: CEPHALEXIN 500 MG CAPSULE PO (21:32)
== END 2021-09-01 21:43 | disposition home or self-care (01) ==
PROVIDERS: Emergency Provider General Practice; PCP Family Medicine
DX: M54.50 Low back pain, unspecified (principal); B37.2 Candidiasis of skin and nail; M79.651 Pain in right thigh; I12.9 Hypertensive chronic kidney disease with stage 1 through stage 4 chronic kidney disease, or unspecified chronic kidney disease; E11.22 Type 2 diabetes mellitus with diabetic chronic kidney disease; N18.30 Chronic kidney disease, stage 3 unspecified; Z87.891 Personal history of nicotine dependence
CPT/HCPCS: 36415; 51701; 74176; 80053; 81001; 82550; 85025; 85610; 85730; 86140; 87077; 87086; 87186; 93971; 96365; 99284; A9270; J0131

== ENCOUNTER 2021-09-04 10:42 | Outpatient (CLI) | payer MEDICARE, MEDICAID, SELFPAY ==
--- NOTE | ~2021-09-04 | XR_ITS ---
XR thoracic spine 3V DATE: 09/04/2021 11:24 INDICATION: Right back pain TECHNIQUE: AP, lateral, swimmer views COMPARISON: None FINDINGS: Moderately severe degenerative disc disease at C5-6. Osteopenia. There is mild thoracic dextroscoliosis. There is moderate degenerative spurring of the thoracic spine can with degenerative disease involving particularly the mid and lower thoracic spine. The thoracic pedicles appear intact. No fracture or bone destruction or paraspinal soft tissue thicke renny is noted. IMPRESSION: Mild dextro scoliosis Degenerative change Reviewed, dictated and finalized at location A.
--- NOTE | ~2021-09-04 | XR_ITS ---
XR hip RT 2V w AP pelvis 09/04/2021 11:24 Indication: Radiculopathy. Pelvic pain. Procedure: AP pelvis and 2 views right hip Comparison: 06/24/2017 Findings: There is mild osteoarthritis of the right hip. There is moderate lower lumbar spondylosis w ith levoscoliosis, partially visualized. Pelvic rings are intact. Impression: 1: Mild osteoarthritis of the right hip. Reviewed, dictated and finalized at location A. Impression: 1: Mild osteoarthritis of the right hip.
--- NOTE | ~2021-09-04 | XR_ITS ---
XR lumbar spine 2-3V DATE: 09/04/2021 11:24 INDICATION: Right back pain TECHNIQUE: AP, lateral, coned lateral lumbosacral views COMPARISON: None FINDINGS: There is mild lumbar levoscoliosis. Degenerative spurring of the lower thoracic spine. There is moderate degenerative disc disease at L1 to. Moderately severe degenerative disc disease and grade 1 5 mm anterolisthesis at L2-3. Severe degenerative disc disease at L3-4, L4-5 and L5-S1, with minimal retrolisthesis at L4-5. No fracture or bone destruction is evident. The lumbar pedicles appear intact. The sacroiliac joints appear normal. Status post cholecystectomy. IMPRESSION: Mild levoscoliosis of the lumbar spine Grade 1 anterolisthesis at L2-3 Multilevel degenerative disc disease, most pronounced at L3-4, L4-5 and L5-S1, with minimal retrolist hesis at L4-5 Reviewed, dictated and finalized at location A. IMPRESSION: Mild levoscoliosis of the lumbar spine Grade 1 anterolisthesis at L2-3 Multilevel degenerative disc disease, most pronounced at L3-4, L4-5 and L5-S1, with minimal retrolisthesis at L4-5
== END 2021-09-04 10:43 | disposition home or self-care (01) ==
PROVIDERS: PCP Family Medicine; Visit Provider Physician Assistant
DX: M54.16 Radiculopathy, lumbar region (principal); M41.86 Other forms of scoliosis, lumbar region; M43.06 Spondylolysis, lumbar region; M51.36 Other intervertebral disc degeneration, lumbar region; M16.11 Unilateral primary osteoarthritis, right hip
CPT/HCPCS: 72072; 72100; 73502

== ENCOUNTER 2021-09-07 10:33 | Outpatient (CLI) | payer MEDICARE, MEDICAID, SELFPAY ==
--- NOTE | ~2021-09-07 | MR_ITS ---
EXAMINATION: MR lumbar spine wo con DATE: 09/07/2021 13:08 INDICATION: Lumbar radiculopathy. TECHNIQUE: Magnetic resonance imaging (MRI) of the lumbar spine was performed without intravenous con trast. Sequences included sagittal T2-weighted FSE, sagittal T2-weighted FS FSE, sagittal T1-weighted FSE, and axial T2-weighted FSE. COMPARISON: Lumbar spine radiograph 09/04/2021 FINDINGS: There is 8 degrees levocurvature of lumbar spine. There is 3 mm anterolisthesis of L2 on L3 . There is mild chronic anterior wedging of L3 vertebral body. There is mild chronic height loss of L 5 vertebral body posteriorly. There is moderately decreased disc height at T12-L1 and L1-L2 and sever kelli decreased disc height from L2-L3 through L5-S1 with endplate remodeling. The distal spinal cord s ignal intensity is normal. The conus medullaris is at L1. The following disc levels are specifically discussed: T12-L1: There is a left central extrusion. There is moderate bilateral facet joint osteoarthritis. Th ere is no neural foraminal stenosis. There is mild central canal stenosis. L1-L2: The disc is bulging and has an annular fissure. There is severe bilateral facet joint osteoart hritis. There is mild bilateral neural foraminal stenosis. There is mild central canal stenosis. L2-L3: The disc is bulging and has an annular fissure. There is severe bilateral facet joint osteoart hritis. There is mild bilateral neural foraminal stenosis. There is mild central canal stenosis. L3-L4: The disc is bulging and has an annular fissure. There is severe bilateral facet joint osteoart hritis. There is mild bilateral neural foraminal stenosis. There is mild central canal stenosis. L4-L5: The disc is bulging and has an annular fissure. There is moderate bilateral facet joint osteoa rthritis. There is mild right and moderate left neural foraminal stenosis. There is mild central parisa l stenosis. L5-S1: The disc is bulging and has an annular fissure. There is severe bilateral facet joint osteoart hritis. There is moderate bilateral neural foraminal stenosis. There is mild central canal stenosis. IMPRESSION: 1. Severe lumbar spondylosis. Reviewed, dictated and finalized at location A.
== END 2021-09-07 10:34 | disposition home or self-care (01) ==
PROVIDERS: PCP Family Medicine; Visit Provider Physician Assistant
DX: M47.26 Other spondylosis with radiculopathy, lumbar region (principal)
CPT/HCPCS: 72148

== ENCOUNTER 2021-12-04 13:54 | Outpatient (CLI) | payer MEDICARE, MEDICAID, SELFPAY ==
[2021-12-04 19:46] LABS: Alanine Aminotransferase 21 U/L (6-35); Albumin Level 4.4 g/dL (3.5-5.1); Alkaline Phosphatase 111 U/L (38-126); Anion Gap 10 mmol/L (8-16); Aspartate Amino Transferase 46 U/L (14-36); Bilirubin,Total 0.6 mg/dL (0.2-1.3); Blood Urea Nitrogen 22 mg/dL (7-17); Calcium 9.4 mg/dL (8.4-10.2); Carbon Dioxide 24 mmol/L (22-30); Chloride 103 mmol/L (98-107); Cholesterol 183 mg/dL (0-200); Estimated Glomerular Filt Rate 46; Glucose 112 mg/dL (65-110); HDL Direct 66 mg/dL; Potassium 4.2 mmol/L (3.4-5.0); Sodium 137 mmol/L (137-145); Triglycerides 231 mg/dL (<150)
[2021-12-04 19:50] LABS: Basophils Absolute Auto 0.1 K/mm3 (0.0-0.1); Basophils Percent Auto 0.6 % (0.2-1.2); Eosinophils Absolute Auto 0.2 K/mm3 (0-0.3); Eosinophils Percent Auto 2.3 % (0-4.4); Hematocrit 42.2 % (37.0-47.0); Hemoglobin 14.5 g/dL (12.0-15.0); Immature Granulocyte Absolute 0.05 K/mm3 (0.00-0.031); Immature Granulocyte Percent A 0.5 % (0-0.5); Lymphocytes Percent Auto 29.8 % (18.3-44.2); Mean Corpuscular HGB Conc 34.4 g/dl (32-36); Mean Corpuscular Hemoglobin 31.5 pg (26-34); Mean Corpuscular Volume 91.7 fl (80-100); Mean Platelet Volume 9.7 fl (7.4-10.4); Monocytes Absolute Auto 0.8 K/mm3 (0.1-0.6); Monocytes Percent Auto 8.1 % (2.6-8.5); Neutrophils Absolute Auto 6.1 K/mm3 (1.3-6.7); Neutrophils Percent Auto 58.7 % (45.5-73.1); Platelet Count Result 243 k/mm3 (150-375); Red Cell Distribution Width 14.7 % (11.5-14.5); White Blood Count 10.4 K/mm3 (4.5-10.0)
[2021-12-04 19:57] LABS: LDL Cholesterol Direct 75 mg/dL
[2021-12-04 21:23] LABS: Hemoglobin A1C 6.3 % (<5.7)
== END 2021-12-04 13:55 | disposition home or self-care (01) ==
LOC: ANHGOSHLAB 13:58
PROVIDERS: PCP Emergency Medicine; Visit Provider Emergency Medicine
DX: M50.33 Other cervical disc degeneration, cervicothoracic region (principal); E11.9 Type 2 diabetes mellitus without complications; E66.9 Obesity, unspecified; E78.2 Mixed hyperlipidemia
CPT/HCPCS: 36415; 80053; 80061; 83036; 84443; 85025

== ENCOUNTER → 2021-12-04 14:13 | Outpatient (CLI) | payer MEDICARE, MEDICAID, SELFPAY ==
--- NOTE | ~2021-12-04 | XR_ITS ---
EXAMINATION: XR chest 2V DATE: 12/04/2021 14:31 INDICATION: Shortness of breath TECHNIQUE: Frontal and lateral views of the chest are obtained COMPARISON: 07/09/2018 FINDINGS: The lungs are free of acute opacities. No pleural effusion or pneumothorax. The cardiomedia stinal silhouette is normal. There is moderate thoracic spondylosis. IMPRESSION: 1. No acute cardiopulmonary abnormality. Reviewed, dictated and finalized at location B.
== END ==
PROVIDERS: PCP Emergency Medicine; Visit Provider Emergency Medicine
DX: R06.02 Shortness of breath (principal)
CPT/HCPCS: 36415; 71046; 80053; 80061; 83036; 84443; 85025

== ENCOUNTER 2021-12-10 16:00 | Outpatient (RCR) | payer MEDICARE, MEDICAID, SELFPAY ==
--- NOTE | 2021-11-10 14:20 | PTOPEVAL ---
PHYSICAL THERAPY INITIAL EVALUATION. Thank you for referring Natalie Singh to [facility].? The patient is scheduled to be seen for therapy? 2x/week for 4 weeks. Please review, sign, date and return this plan of care LINDA. I agree with and certify that the following plan of care is medically necessary. Referring Physician Date Attending Provider: Noel Wise MD *PT Outpatient Evaluation Start: 11/07/21 Evaluation Information Diagnosis low back pain Additional Evaluation Detail Pt ambulates into the clinic today using a wheeled walker, assisted by her grandson. Pt states she has no knuckles in her toes , this was done in 1979. Subjective Information Pt states 4 years ago she had Query Text:As Reported By Patient/ 2 strokes, affecting her left Family side. Around that time she fell and dislocated her knee cap. She states favoring her knee is what caused her to hurt her back. She states she has a back surgery scheduled for January. Pt states her grandson is her primary caregiver. Pt states she has been using a walker for 4 months now. She reports 2 falls in the last year. Pt reports she can standing for 20 mins at most. Pt report her R leg is currently numb and has been since her back started hurting, about 4 months ago. Pt states she has been incontinent to urine since sometime in the , she has been incontinent to bowel since her stroke 4 years ago. Pain Assessment Lower Back Reported Pain Level 6 Pain Description Aching Pain Radiation Right Leg Pain Frequency Chronic,Intermittent Lowest Pain Intensity 5 Greatest Pain Intensity 10 Pain Aggravating Factors Bending,Changing Position, Lifting,Sitting,Stair Climbing ,Supine,Walking,Weight Bearing /Standing Cervical and Lumbar ROM Lumbar ROM Lumbar Flexion (0-90) 40 Lumbar Extension (0-40) 0 Lateral Flexion
--- NOTE | 2022-01-07 08:55 | PCPTNOTE ---
Called and left voicemail regarding a lapse in time without a therapy visit. Left instructions for her to call if further therapy is needed. If we do not hear back within a week, it will be assumed she is better and she will be discharged at that time.
--- NOTE | 2022-01-09 11:18 | PTOPDC ---
Assessment and note entered by Stephanie Bronson, PT, DPT Evaluation Information Assessment Status Discharge - Pt Not Present Diagnosis low back pain Subjective Information Called and spoke with patient d/t inactivity with her chart. She states her knee has been hurting so bad that is why she has not been coming to therapy. She states she is getting back injections today and she thinks that will help. Per pt she is supposed to have surgery in January and states she will be better after this. She would like to be discharged from skilled therapy services at this time. Assessment PT Clinical Summary Natalie completed 4 visits of therapy from 11/07/21 to 12/10/21. She will be discharged at this time. If she is to return in the future, she will need a new order. Plan of Care Treatment Frequency and to be discharged. Duration
== END 2022-01-13 13:23 | disposition home or self-care (01) ==
LOC: ANHGOSHPT 16:00
PROVIDERS: PCP Family Medicine; Visit Provider Physician Assistant
DX: M51.16 Intervertebral disc disorders with radiculopathy, lumbar region (principal)
CPT/HCPCS: 97014; 97110; 97112; 97161; 97530; G0283

== ENCOUNTER 2022-08-11 14:25 | Outpatient (CLI) | payer MEDICARE, MEDICAID, SELFPAY ==
[2022-08-11 21:21] LABS: Alanine Aminotransferase 18 U/L (6-35); Albumin Level 4.7 g/dL (3.5-5.1); Alkaline Phosphatase 198 U/L (38-126); Anion Gap 10 mmol/L (8-16); Aspartate Amino Transferase 40 U/L (14-36); Bilirubin,Total 0.6 mg/dL (0.2-1.3); Blood Urea Nitrogen 21 mg/dL (7-17); Calcium 9.6 mg/dL (8.4-10.2); Carbon Dioxide 27 mmol/L (22-30); Chloride 103 mmol/L (98-107); Cholesterol 182 mg/dL (0-200); Estimated Glomerular Filt Rate 56; Glucose 141 mg/dL (65-110); HDL Direct 51 mg/dL; Sodium 140 mmol/L (137-145); Triglycerides 253 mg/dL (<150)
[2022-08-11 21:32] LABS: LDL Cholesterol Direct 82 mg/dL
[2022-08-11 21:44] LABS: Hemoglobin A1C 6.7 % (<5.7)
== END 2022-08-11 14:26 | disposition home or self-care (01) ==
LOC: ANHGOSHLAB 14:27
PROVIDERS: PCP Emergency Medicine; Visit Provider Emergency Medicine
DX: E11.9 Type 2 diabetes mellitus without complications (principal); I10 Essential (primary) hypertension
CPT/HCPCS: 36415; 80053; 80061; 83036

== ENCOUNTER 2022-08-20 16:05 | Emergency (ER) | payer MEDICARE, MEDICAID, SELFPAY ==
--- NOTE | ~2022-08-20 | XR_ITS ---
EXAMINATION: XR knee LT min 4V DATE: 08/20/2022 16:40 INDICATION: Left knee pain. TECHNIQUE: 4 views of left knee were obtained. COMPARISON: Left knee radiographs 02/29/2020 FINDINGS: There is chronic lateral dislocation of patella with respect to distal femur. No fracture. There is severe tricompartmental osteoarthritis in the knee. No knee joint effusion. IMPRESSION: 1. Chronic lateral dislocation of patella with respect to distal femur. 2. Severe left knee osteoarthritis. Reviewed, dictated and finalized at location A.
[2022-08-20 16:08] VITALS: BP 159/83; PULSE 78; RESP 18; TEMP 36.6; O2SAT 98
--- NOTE | 2022-08-20 17:37 | ED.LOWEXIN ---
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 Patient states she was laying in bed with her knee in a flexed position when she felt a sudden sharp sensation behind her knee. States since then she has had a sore sensation to the posterior and medial aspect of her knee with swelling. She reports difficulty with extension. She reports she has been able to ambulate with a cane but with more difficulty than usual. She denies paresthesias, fever. She has an appointment with her orthopedist in 4 days. <MACIEJ Starkey Last Filed: 08/21/22 00:05> Related Data Home Medications: Home Medications Medication Instructions Recorded Confirmed acetaminophen 500 mg tablet 500 mg PO Q6H PRN Pain 02/29/20 08/11/22 (Acetaminophen Extra Strength) pen needle, diabetic 31 gauge x 10/30/20 04/07/22 5/16 (BD Ultra-Fine Short Pen Needle) latanoprost 0.005 % eye drops 1 drp EACH EYE QPM 12/01/21 08/11/22 <MACIEJ Starkey Last Filed: 08/21/22 00:05> Allergies/Adverse Reactions: Allergies Allergy/AdvReac Type Severity Reaction Status Date / Time banana Allergy Severe HIVES Verified 08/11/22 13:26 SWELLING DENIES LATEX ALLG naproxen Allergy Severe anaphalyxsi Verified 08/11/22 13:26 s <MACIEJ Starkey Last Filed: 08/21/22 00:05> Review of Systems Review of Systems: CONSTITUTIONAL: Denies fever EYES: Denies visual changes, redness, or discharge. ENT: Denies rhinorrhea, congestion, sore throat, or otalgia. CARDIOVASCULAR: Denies chest pain, palpitations, or edema. RESPIRATORY: Denies cough or dyspnea. GASTROINTESTINAL: Denies abdominal pain, nausea, vomiting, or diarrhea. GENITOURINARY: Denies dysuria or hematuria. SKIN: Denies rash or itching. MUSCULOSKELETAL: See HPI NEUROLOGIC: Denies headache, numbness, dizziness, or weakness. PSYCHIATRIC: Denies anxiety or depression. <Hanh Kendrick PA-C - Last Filed: 08/21/22 00:05> [facility] Past Medical History Medical History: Medical History Johnson's esophagus Cerebrovascular accident X3; June 2017, August 2017, October 2019. Chronic back pain Chronic kidney disease, stage 3 Baseline creatinine is between 1.3 and 1.60. Chronic obstructive pulmonary disease Depression Gastroesophageal reflux disease History of fracture Right ankle fracture. Left patellar fracture History of peptic ulcer History of recurrent UTIs History of thyroiditis Hypertension Macular degeneration Migraines Osteoarthritis Unable to ambulate <Hanh Kendrick PA-C - Last Filed: 08/21/22 00:05> Surgical History Surgical History: Surgical History History of bilateral carpal tunnel release History of section History of dilation and curettage History of foot surgery Bilateral foot surgery in the 1980s to correct deformities attributed to [id number]. History of laparoscopic cholecystectomy History of loop recorder History of lumbar laminectomy History of repair of right rotator cuff History of tonsillectomy <Hanh Kendrick PA-C - Last Filed: 08/21/22 00:05> Family History Family History: Family History Grandparent Diabetes mellitus Sibling Diabetes mellitus H
== END 2022-08-20 18:32 | disposition home or self-care (01) ==
PROVIDERS: Emergency Provider Physician Assistant; PCP Emergency Medicine
DX: M22.02 Recurrent dislocation of patella, left knee (principal); I12.9 Hypertensive chronic kidney disease with stage 1 through stage 4 chronic kidney disease, or unspecified chronic kidney disease; N18.30 Chronic kidney disease, stage 3 unspecified; J44.9 Chronic obstructive pulmonary disease, unspecified; H35.30 Unspecified macular degeneration; K22.70 Barrett's esophagus without dysplasia; M17.12 Unilateral primary osteoarthritis, left knee; F17.210 Nicotine dependence, cigarettes, uncomplicated; Z87.11 Personal history of peptic ulcer disease; Z86.73 Personal history of transient ischemic attack (TIA), and cerebral infarction without residual deficits
CPT/HCPCS: 73564; 99283

== ENCOUNTER 2022-08-28 10:47 | Emergency (ER) | payer MEDICARE, MEDICAID, SELFPAY ==
[2022-08-28] VITALS (30 sets, daily range): BP systolic 118–195; BP diastolic 80–118; PULSE 96–154; RESP 15–31; TEMP 36.8; O2SAT 91–97
[2022-08-28] MEDS: SODIUM CHLORIDE 0.9% IV 1,000 ML 999 ML IV CONT (12:11)
[2022-08-28 12:14] LABS: Basophils Absolute Auto 0.1 K/mm3 (0.0-0.1); Basophils Percent Auto 0.5 % (0.2-1.2); Eosinophils Absolute Auto 0.3 K/mm3 (0-0.3); Hematocrit 42.2 % (37.0-47.0); Hemoglobin 13.8 g/dL (12.0-15.0); Immature Granulocyte Absolute 0.04 K/mm3 (0.00-0.031); Immature Granulocyte Percent A 0.4 % (0-0.5); Lymphocytes Absolute Auto 1.55 K/mm3 (0.9-3.2); Lymphocytes Percent Auto 14.1 % (18.3-44.2); Mean Corpuscular HGB Conc 32.7 g/dl (32-36); Mean Corpuscular Hemoglobin 28.8 pg (26-34); Mean Corpuscular Volume 88.1 fl (80-100); Mean Platelet Volume 10.3 fl (7.4-10.4); Monocytes Absolute Auto 0.6 K/mm3 (0.1-0.6); Monocytes Percent Auto 5.7 % (2.6-8.5); Neutrophils Absolute Auto 8.4 K/mm3 (1.3-6.7); Neutrophils Percent Auto 76.3 % (45.5-73.1); Platelet Count Result 285 k/mm3 (150-375); Red Blood Count 4.79 M/mm3 (4.2-5.4); Red Cell Distribution Width 12.6 % (11.5-14.5)
[2022-08-28 12:22] LABS: Prothrombin Time 13.9 Seconds (11.1-14.7)
[2022-08-28 12:23] LABS: Partial Thromboplastin Time 29.7 SECONDS (22.3-36.8)
[2022-08-28 12:24] LABS: Alanine Aminotransferase 16 U/L (6-35); Albumin Level 4.4 g/dL (3.5-5.1); Alkaline Phosphatase 178 U/L (38-126); Anion Gap 8 mmol/L (8-16); Aspartate Amino Transferase 19 U/L (14-36); Bilirubin,Total 0.5 mg/dL (0.2-1.3); Blood Urea Nitrogen 19 mg/dL (7-17); Calcium 8.9 mg/dL (8.4-10.2); Carbon Dioxide 23 mmol/L (22-30); Chloride 110 mmol/L (98-107); Estimated CRCL calculation 57 ml/min; Estimated Glomerular Filt Rate 50; Glucose 172 mg/dL (65-110); Potassium 3.6 mmol/L (3.4-5.0); Sodium 141 mmol/L (137-145)
--- NOTE | 2022-08-28 13:11 | ED.EPISTAXIS ---
HPI - Epistaxis General Chief complaint: Epistaxis Stated complaint: nose bleed Time Seen by Provider: 08/28/22 10:56 History of Present Illness HPI Narrative: Patient is a 62-year-old female who presents ER with epistaxis. Sudden onset prior to arrival. Awoke from sleep feeling bad taste in her mouth and then coughing up a large blood clot. She has had persistent oozing from the nose and from the back of her throat. She is on Plavix. No trauma to the nose. No runny nose sore throat or cough recently. No sneezing or blowing of the nose. Related Data Home Medications Medication Instructions Recorded Confirmed acetaminophen 500 mg tablet 500 mg PO Q6H PRN Pain 02/29/20 08/11/22 (Acetaminophen Extra Strength) pen needle, diabetic 31 gauge x 10/30/20 04/07/22 5/ (BD Ultra-Fine Short Pen Needle) latanoprost 0.005 % eye drops 1 drp EACH EYE QPM 12/01/21 08/11/22 Allergies Allergy/AdvReac Type Severity Reaction Status Date / Time banana Allergy Severe HIVES Verified 08/11/22 13:26 SWELLING DENIES LATEX ALLG naproxen Allergy Severe anaphalyxsi Verified 08/11/22 13:26 s Review of Systems Review of Systems: All systems reviewed & are unremarkable except as noted in HPI and below Constitutional: Constitutional: Denies chills, Denies fatigue and Denies fever(s) ENT: Reports epistaxis, Denies nasal congestion and Denies sore throat Cardiovascular: Cardiovascular: Denies chest pain, Denies rapid heart rate and Denies radiating jaw, neck or arm pain Respiratory: Respiratory: Denies cough and Denies dyspnea Gastrointestinal: Gastrointestinal: Denies abdominal pain, Denies nausea and Denies vomiting [facility] Past Medical History Medical History Johnson's esophagus Cerebrovascular accident X3; June 2017, August 2017, October 2019. Chronic back pain Chronic kidney disease, stage 3 Baseline creatinine is between 1.3 and 1.60. Chronic obstructive pulmonary disease Depression Gastroesophageal reflux disease History of fracture Right ankle fracture. Left patellar fracture History of peptic ulcer History of recurrent UTIs History of thyroiditis Hypertension Macular degeneration Migraines Osteoarthritis Unable to ambulate Surgical History Surgical History History of bilateral carpal tunnel release History of section History of dilation and curettage History of foot surgery Bilateral foot surgery in the 1980s to correct deformities attributed to [id number]. History of laparoscopic cholecystectomy History of loop recorder History of lumbar laminectomy History of repair of right rotator cuff History of tonsillectomy Family History Family History Grandparent Diabetes mellitus Sibling Diabetes mellitus Hypertension Father Hypertension Acute myocardial infarction Family history of malignant neoplasm of stomach Mother Hypertension Family history of chronic obstructive pulmonary disease Other Family history of cardiovascular disease Family history of lung disease Family history of osteoporosis Social History Social History Social History: Surrogate decision maker: Kath Chow and Angi Chucho, sisters. Code status: Full code. Years smoked: 40 Smoking status: Current some day smoker (2-3 cigarettes per day when she gets nervous) Tobacco type: cigarettes Second hand tobacco smoke exposure: Yes Additional smoking assessment comments: Patient smoked up to 2 packs of cigarettes per day since the age of 17. Alcohol intake: never Substance use: never Additional living arrangements comments: Resides in [place] with her lab. She has a walker at home which she will use on occasion. Additional occupation/educa
--- NOTE | 2022-08-28 13:16 | PC.NURSE ---
Bleeding from nose controlled.
--- NOTE | 2022-08-28 14:01 | PC.NURSE ---
Continues to have no bleeding from nose.
--- NOTE | 2022-08-28 14:51 | ECG_ITS ---
Measurements Intervals [place] Rate: 140 P: 38 [place]: 143 QRS: -61 QRSD: 88 T: 79 QT: 298 QTc: 455 Interpretive Statements SINUS TACHYCARDIA, POSSIBLE ATRIAL FLUTTER LEFT ANTERIOR FASCICULAR BLOCK [QRS AXIS <= -45, QR IN I, RS IN II] LEFT VENTRICULAR HYPERTROPHY AND ST-T CHANGE [VOLTAGE CRITERIA PLUS ST/T ABNORMALITY] ANTEROSEPTAL MYOCARDIAL INFARCTION, PROBABLY OLD COMPARED TO ECG 02/29/2020 06:18:51 THE PATIENT IS NOW TACHYCARDIC. Electronically Signed On 08-29-2022 8:56:14 CDT by Rachele Guillen M.D.
[2022-08-28] MEDS: METOPROLOL TARTRATE INJ 5 MG/5 ML VIAL IV PUSH (15:16)
== END 2022-08-28 16:14 | disposition home or self-care (01) ==
PROVIDERS: Emergency Provider Emergency Medicine; PCP Emergency Medicine
DX: R04.0 Epistaxis (principal); I48.92 Unspecified atrial flutter; Z79.01 Long term (current) use of anticoagulants; I12.9 Hypertensive chronic kidney disease with stage 1 through stage 4 chronic kidney disease, or unspecified chronic kidney disease; N18.30 Chronic kidney disease, stage 3 unspecified; J44.9 Chronic obstructive pulmonary disease, unspecified; K21.9 Gastro-esophageal reflux disease without esophagitis; M19.90 Unspecified osteoarthritis, unspecified site
CPT/HCPCS: 30901; 36415; 80053; 85025; 85610; 85730; 93005; 96361; 96374; 99284; A9270; J7030

== ENCOUNTER 2023-04-13 14:47 | Outpatient (CLI) | payer MEDICARE, MEDICAID, SELFPAY ==
[2023-04-13 19:27] LABS: Basophils Absolute Auto 0.1 K/mm3 (0.0-0.1); Basophils Percent Auto 0.8 % (0.2-1.2); Eosinophils Absolute Auto 0.3 K/mm3 (0-0.3); Eosinophils Percent Auto 2.6 % (0-4.4); Hematocrit 41.8 % (37.0-47.0); Hemoglobin 13.2 g/dL (12.0-15.0); Immature Granulocyte Absolute 0.04 K/mm3 (0.00-0.031); Immature Granulocyte Percent A 0.4 % (0-0.5); Lymphocytes Absolute Auto 4.22 K/mm3 (0.9-3.2); Lymphocytes Percent Auto 37.2 % (18.3-44.2); Mean Corpuscular HGB Conc 31.6 g/dl (32-36); Mean Platelet Volume 11.1 fl (7.4-10.4); Monocytes Absolute Auto 0.8 K/mm3 (0.1-0.6); Monocytes Percent Auto 7.4 % (2.6-8.5); Neutrophils Absolute Auto 5.9 K/mm3 (1.3-6.7); Neutrophils Percent Auto 51.6 % (45.5-73.1); Platelet Count Result 301 k/mm3 (150-375); Red Cell Distribution Width 14.3 % (11.5-14.5); White Blood Count 11.3 K/mm3 (4.5-10.0)
[2023-04-13 20:50] LABS: Alanine Aminotransferase 15 U/L (6-35); Albumin Level 4.7 g/dL (3.5-5.1); Alkaline Phosphatase 149 U/L (38-126); Anion Gap 15 mmol/L (8-16); Aspartate Amino Transferase 27 U/L (14-36); Bilirubin,Total 0.5 mg/dL (0.2-1.3); Blood Urea Nitrogen 17 mg/dL (7-17); Calcium 9.6 mg/dL (8.4-10.2); Carbon Dioxide 17 mmol/L (22-30); Chloride 109 mmol/L (98-107); Cholesterol 169 mg/dL (0-200); Estimated Glomerular Filt Rate 56; Glucose 116 mg/dL (65-110); HDL Direct 61 mg/dL; Potassium 4.3 mmol/L (3.4-5.0); Sodium 141 mmol/L (137-145); Triglycerides 287 mg/dL (<150)
[2023-04-13 21:01] LABS: LDL Cholesterol Direct 64 mg/dL
[2023-04-13 22:00] LABS: Hemoglobin A1C 6.5 % (<5.7)
== END 2023-04-13 14:48 | disposition home or self-care (01) ==
PROVIDERS: PCP Emergency Medicine; Visit Provider Emergency Medicine
DX: E78.2 Mixed hyperlipidemia (principal); E11.22 Type 2 diabetes mellitus with diabetic chronic kidney disease; N18.9 Chronic kidney disease, unspecified; E66.9 Obesity, unspecified
CPT/HCPCS: 36415; 80053; 80061; 83036; 85025

== ENCOUNTER 2023-12-11 04:54 | Emergency (ER) | payer MEDICARE, MEDICAID, SELFPAY ==
--- NOTE | ~2023-12-11 | CT_ITS ---
EXAMINATION: CT facial & cervical spine wo DATE: 12/11/2023 06:18 INDICATION: Head injury. TECHNIQUE: Computed tomography (CT) of the maxillofacial region and cervical spine was performed with out intravenous contrast. Automated exposure control and iterative reconstruction technique were empl oyed. The dose-length product was 388.04 mGy-cm. COMPARISON: CT cervical spine 02/29/2020 FINDINGS: MAXILLOFACIAL CT: There is leftward deviation of the nasal septum. No fracture. There is mild mucosal thickening in the paranasal sinuses. The orbits are normal. There is a trace left mastoid effusion. CERVICAL SPINE CT: There are nodules in the thyroid measuring up to 12 mm, likely not clinically significant. Vertebral body heights are normal. There is mildly decreased disc height at C4-C5, moderately decreased disc he ight at C5-C6, and mildly decreased disc height at C6-C7. The following disc levels are specifically discussed: C2-C3: There is mild left uncovertebral joint osteoarthritis. There is moderate bilateral facet joint osteoarthritis. There is no neural foraminal stenosis. There is no central canal stenosis. C3-C4: There is mild bilateral uncovertebral joint osteoarthritis. There is moderate and severe left facet joint osteoarthritis. There is mild left neural foraminal stenosis. There is no central canal s tenosis. C4-C5: There is severe right and mild left uncovertebral joint osteoarthritis. There is severe right and moderate left facet joint osteoarthritis. There is mild right neural foraminal stenosis. There is mild central canal stenosis. C5-C6: There is moderate right and severe left uncovertebral joint osteoarthritis. There is severe bi lateral facet joint osteoarthritis. There is mild bilateral neural foraminal stenosis. There is mild central canal stenosis. C6-C7: There is moderate right and mild left uncovertebral joint osteoarthritis. There is moderate bi lateral facet joint osteoarthritis. There is no neural foraminal stenosis. There is mild central parisa l stenosis. C7-T1: There is no uncovertebral joint osteoarthritis. There is mild bilateral facet joint osteoarthr itis. There is no neural foraminal stenosis. There is mild central canal stenosis. IMPRESSION: 1. No fracture. 2. Moderate cervical spondylosis. Reviewed, dictated and finalized at location A.
--- NOTE | ~2023-12-11 | CT_ITS ---
EXAMINATION: CT brain wo con DATE: 12/11/2023 06:17 INDICATION: Head injury. TECHNIQUE: Computed tomography (CT) of the head was performed without intravenous contrast. The mA wa s adjusted according to patient size. Iterative reconstruction technique was employed. The dose-lengt h product was 681.00 mGy-cm. COMPARISON: Head CT 02/29/2020 FINDINGS: There is an old infarct in the right basal ganglia. There are scattered areas of low attenu ation in the cerebral white matter. There is an old infarct in the left occipital lobe. There is no i ntracranial hemorrhage, acute infarction, or abnormal intracranial mass lesion. The ventricles are no rmal in size. Cavum septum pellucidum is noted. The paranasal sinuses are clear. The orbits are raiza l. There is a trace left mastoid effusion. IMPRESSION: 1. Old infarcts in the right basal ganglia and left occipital lobe. 2. Worsened moderate nonspecific cerebral white matter disease, which likely represents chronic small vessel ischemic disease. Reviewed, dictated and finalized at location A. IMPRESSION: 1. Old infarcts in the right basal ganglia and left occipital lobe. 2. Worsened moderate nonspecific cerebral white matter disease, which likely re presents chronic small vessel ischemic disease.
--- NOTE | ~2023-12-11 | XR_ITS ---
EXAMINATION: XR elbow LT 2V DATE: 12/11/2023 06:31 INDICATION: Left elbow pain. Fall. TECHNIQUE: 2 views of left elbow were obtained. COMPARISON: None. FINDINGS: Alignment is normal. No fracture. Joint spaces are normal. There are enthesophytes at the m edial and lateral humeral epicondyles. No elbow joint effusion. IMPRESSION: 1. No fracture. Reviewed, dictated and finalized at location A. IMPRESSION: 1. No fracture.
--- NOTE | ~2023-12-11 | XR_ITS ---
EXAMINATION: XR knee LT 3V DATE: 12/11/2023 06:31 INDICATION: Left knee pain. Fall. TECHNIQUE: 3 views of left knee were obtained. COMPARISON: Left knee radiograph 08/20/2022 FINDINGS: There is a total left knee arthroplasty in near-anatomic alignment. No periprosthetic lucen cy to suggest loosening or infection. No fracture. Patella is absent. Anterior skin keke are noted . IMPRESSION: 1. Total left knee arthroplasty in near-anatomic alignment. Reviewed, dictated and finalized at location A.
--- NOTE | ~2023-12-11 | XR_ITS ---
EXAMINATION: XR foot RT min 3V DATE: 12/11/2023 06:31 INDICATION: Right foot pain. Fall. TECHNIQUE: 3 views of right foot were obtained. COMPARISON: None. FINDINGS: Pes cavus is noted. No acute fracture. There are 2 keke and calcaneus. There are wires i n the first, fourth, and fifth metatarsals. There is mild osteoarthritis of first and fifth metatarso phalangeal joints and some of the midfoot joints and interphalangeal joints. There is an enthesophyte at plantar aspect of calcaneal tuberosity. IMPRESSION: 1. Mild polyarticular osteoarthritis. 2. Pes cavus. Reviewed, dictated and finalized at location A.
--- NOTE | ~2023-12-11 | XR_ITS ---
EXAMINATION: XR wrist LT min 3V DATE: 12/11/2023 06:32 INDICATION: Left wrist pain. Fall. TECHNIQUE: 4 views of left wrist were obtained. COMPARISON: Left wrist radiographs 02/29/2020 FINDINGS: Bone alignment is normal. No fracture. There is a sclerotic lesion in lunate. There is mild osteoarthritis of triscaphe joint and severe osteoarthritis of first carpometacarpal joint. IMPRESSION: 1. Polyarticular osteoarthritis. 2. Chronic sclerotic lesion in lunate, which may be a benign bone island or osteonecrosis. Reviewed, dictated and finalized at location A. IMPRESSION: 1. Polyarticular osteoarthritis. 2. Chronic sclerotic lesion in lunate, which may be a benign bone island or ost eonecrosis.
[2023-12-11 04:52] VITALS: BP 137/72; PULSE 70; RESP 23; TEMP 36.7; O2SAT 93
--- NOTE | 2023-12-11 05:11 | ED.GENADULT ---
HPI - General Adult General Chief complaint: Fall Stated complaint: fall Time Seen by Provider: 12/11/23 04:59 History of Present Illness HPI narrative: Patient is a 63-year-old female who presents emergency department with chief complaint of head injury status post rolling out of bed the patient reports that she is doing rehab at [facility] of the local care facilities after having a knee replacement. Patient states tonight she was laying in bed rolled and rolled out of the bed the patient reports that she struck her head reports that she has abrasions present to her left elbow and left wrist patient also reports that she has some slightly increased pain in her left knee and her right great toe the patient reports she is currently on an anticoagulant Related Data Home Medications Medication Instructions Recorded Confirmed pen needle, diabetic 31 gauge x 10/30/20 10/27/2308/04 (BD Ultra-Fine Short Pen Needle) apixaban 5 mg tablet 5 mg PO BID 12/15/22 12/11/23 ezetimibe 10 mg tablet 10 mg PO DAILY 12/15/22 10/27/23 latanoprost 0.005 % eye drops 1 drp EACH EYE QPM 12/15/22 10/27/23 acetaminophen 500 mg tablet 500 mg PO Q4-6H PRN Pain 04/13/23 10/27/23 (Acetaminophen Extra Strength) Allergies Allergy/AdvReac Type Severity Reaction Status Date / Time banana Allergy Severe HIVES Verified 12/11/23 05:54 SWELLING DENIES LATEX ALLG naproxen Allergy Severe anaphalyxsi Verified 12/11/23 05:54 s Review of Systems Review of Systems: A 10 system review of systems was completed on the patient and is negative except for what is stated in the HPI. Nursing and ancillary documentation was reviewed. [facility] Past Medical History Medical History Johnson's esophagus Cerebrovascular accident X3; June 2017, August 2017, October 2019. Chronic back pain Chronic kidney disease, stage 3 Baseline creatinine is between 1.3 and 1.60. Chronic obstructive pulmonary disease Depression Gastroesophageal reflux disease History of fracture Right ankle fracture. Left patellar fracture History of peptic ulcer History of recurrent UTIs History of thyroiditis Hypertension Macular degeneration Migraines Osteoarthritis Unable to ambulate Surgical History Surgical History History of bilateral carpal tunnel release History of section History of dilation and curettage History of foot surgery Bilateral foot surgery in the 1980s to correct deformities attributed to Flgwamw-Onqbu-Ijqjg. History of laparoscopic cholecystectomy History of loop recorder History of lumbar laminectomy History of repair of right rotator cuff History of tonsillectomy Family History Family History Grandparent Diabetes mellitus Sibling Diabetes mellitus Hypertension Father Hypertension Acute myocardial infarction Family history of malignant neoplasm of stomach Mother Hypertension Family history of chronic obstructive pulmonary disease Other Family history of cardiovascular disease Family history of lung disease Family history of osteoporosis Social History Social History Social History: Surrogate decision maker: Kath Chow and Angi Rankin, sisters. Code status: Full code. Years smoked: 40 Smoking status: Current some day smoker (2-3 cigarettes per day when she gets nervous) Tobacco type: cigarettes Second hand tobacco smoke exposure: Yes Additional smoking assessment comments: Patient smoked up to 2 packs of cigarettes per day since the age of 17. Alcohol intake: never Substance use: never Lack of Transportation: No Lack of Food: Never True Current Housing: I Have Housing Concerned About Future Housing: No Difficulty Paying Gas/Electric B
--- NOTE | 2023-12-11 05:53 | PC.NURSE ---
pt. to ct
== END 2023-12-11 07:10 ==
PROVIDERS: Emergency Provider Emergency Medicine; PCP Emergency Medicine
DX: S05.12XA Contusion of eyeball and orbital tissues, left eye, initial encounter (principal); S90.111A Contusion of right great toe without damage to nail, initial encounter; S60.812A Abrasion of left wrist, initial encounter; S50.312A Abrasion of left elbow, initial encounter; I12.9 Hypertensive chronic kidney disease with stage 1 through stage 4 chronic kidney disease, or unspecified chronic kidney disease; N18.30 Chronic kidney disease, stage 3 unspecified; J44.9 Chronic obstructive pulmonary disease, unspecified; H35.30 Unspecified macular degeneration; K21.9 Gastro-esophageal reflux disease without esophagitis; K22.70 Barrett's esophagus without dysplasia; M19.032 Primary osteoarthritis, left wrist; M19.071 Primary osteoarthritis, right ankle and foot; M47.812 Spondylosis without myelopathy or radiculopathy, cervical region; F17.210 Nicotine dependence, cigarettes, uncomplicated; Z96.652 Presence of left artificial knee joint; Z86.73 Personal history of transient ischemic attack (TIA), and cerebral infarction without residual deficits; Z87.440 Personal history of urinary (tract) infections; Z87.11 Personal history of peptic ulcer disease; Z90.49 Acquired absence of other specified parts of digestive tract; Q66.71 Congenital pes cavus, right foot; M89.9 Disorder of bone, unspecified; R90.82 White matter disease, unspecified; W06.XXXA Fall from bed, initial encounter
CPT/HCPCS: 70450; 70486; 72125; 73070; 73110; 73562; 73630; 99284